=== PATIENT | male | born 1945 | race Caucasian/White ===

== ENCOUNTER 2018-04-13 14:37 | Inpatient (IN) | payer MEDICARE, BC ==
[~2018-04-13] VITALS: Ht 170.2 cm; Wt 78.5 kg
[2018-04-13] MEDS ORDERED: CIALIS5 MG PO (14:40)
[2018-04-13] MEDS ORDERED: ZOCOR20 M1 ORAL (14:40)
[2018-04-13] MEDS ORDERED: LISINOPRIL2.5 MG ORAL (14:40)
[2018-04-13 14:43] VITALS: BP 100/72
[2018-04-13] MEDS ORDERED: dilTIAZem HCl 25mg/5ml Inj IV ONE (14:45)
[2018-04-13] MEDS ORDERED: Isovue-370 150ml vial INJ PRN (14:45)
--- NOTE | 2018-04-13 15:01 | Emergency Room Report ---
History of Present Illness General Chief Complaint: Chest Pain Source: Patient Present Illness HPI Patient presents with weakness. He had syncopal episode this morning when he got up. He doesn't feel palpitations but has had intermittent nausea. He also denies chest pain. He was seen by his doctors at the hospital where he had undergone back surgery and had atrial flutter/fibrillation with a rapid ventricular rate. He's never had this in the past. The patient had abdominal surgery on Sunday. This was to repair a spinal fusion where a screw came loose. The surgery had no problems. He denies any swelling in his calfs or edema. The patient used to smoke. In 2007 he had a pneumothorax on the left-hand side. There is a nodule that had to be surgically removed. The nodule is benign. This pneumothorax was surgically corrected and he is left with scarring on the left-hand side. He's had joint replacement surgery. 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 No fevers, diarrhea, cough, dyspnea. He has difficulty initiating a stream and has to take Cialis. 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 Nursing Documentation: PMH: Agreed; PSxH: Agreed Nursing Documentation-PMH Hx Hypertension: Yes Review of Systems All Other Systems: negative except mentioned in HPI Physical Exam Vital Signs Date Time Temp Pulse Resp B/P (MAP) Pulse Ox O2 Delivery O2 Flow Rate FiO2 04/13/18 14:35 98.0 145 16 101/70 98 Room Air 98.1 Sp02 EP Interpretation: reviewed, normal General Appearance: well appearing, no apparent distress, GCS 15 Head: normocephalic, atraumatic Eyes: bilateral eye normal inspection, bilateral eye PERRL ENT: moist mucus membranes Neck: supple Respiratory: lungs clear, normal breath sounds Cardiovascular #1: regular rate, rhythm, no edema Cardiovascular #2: 2+ radial (R) Gastrointestinal: normal inspection, normal bowel sounds, non tender, no mass, non-distended, other - surgical wound appears clean Musculoskeletal: back normal - with minimal muscular tenderness, gait/station normal, normal range of motion, no calf tenderness, Heaven's Sign negative Neurologic: alert, oriented x3, grossly normal Psychiatric: mood/affect normal Skin: normal inspection, warm/dry Medical Decision Making Diagnostic Impression: Primary Impression: Atrial fibrillation with rapid ventricular response Additional Impressions: Atrial flutter Qualified Codes: I48.92 - Unspecified atrial flutter UTI (urinary tract infection) Qualified Codes: T83.511A - Infection and inflammatory reaction due to indwelling urethral catheter, initial encounter; N39.0 - Urinary tract infection , site not specified ER Course Patient presents post syncope with weakness and an arrhythmia. On his rhythm strips he has atrial flutter and fibrillation. Differential includes acute pulmonary embolus, acute myocardial infarction, acute coronary syndrome, hyperthyroidism, left right abnormalities amongst others. Evaluation will be with EKG, chest x-ray and labs. The patient will be given a dose of diltiazem. With the recent surgery that possibility of a pulmonary embolus is real and a CT angiogram has been ordered. Because of arrhythmia and history of syncope the patient needs to be admitted to the hospital. EKG with supraventricular tachycardia which could be atrial flutter versus atrial fibrillation with rapid ventricular response. Nonspecific ST-T wave changes without STEMI. Patient is given diltiazem and his rate is now regular at 87. Repeat EKG has been done. Repeat EKG was read us sinus rhythm however it actually is atrial flutter with variable block. There are no hyperacute changes. Labs otherwise unremarkable. Pyuria. Rocephin started. Dr. Leahy examined the patient here. CTA - discussed with radiologist. No large PE. (Atelectasis L base.) Patient rate stable. Admit SDU, Dr Leahy. Laboratory Tests Test 04/13/18 14:15 04/13/18 16:20 White Blood Count 10.5 K/UL (4.8-10.8) Red Blood Count 5.06 M/UL (4.70-6.10) Hemoglobin 14.9 G/DL (14.2-18.0) Hematocrit 43.7 % (42.0-52.0) Mean Corpuscular Volume 86 FL (80-99) Mean Corpuscular Hemoglobin 29.4 PG (27.0-31.0) Mean Corpuscular Hemoglobin Concent 34.0 G/DL (32.0-36.0) Red Cell Distribution Width 11.1 % (11.6-14.8) L Platelet Count 204 K/UL (150-450) Mean Platelet Volume 6.7 FL (6.5-10.1) Neutrophils (%) (Auto) 73.6 % (45.0-75.0) Lymphocytes (%) (Auto) 13.9 % (20.0-45.0) L Monocytes (%) (Auto) 11.6 % (1.0-10.0) H Eosinophils (%) (Auto) 0.6 % (0.0-3.0) Basophils (%) (Auto) 0.3 % (0.0-2.0) Prothrombin Time 10.0 SEC (9.30-11.50) Prothrombin Time INR 0.9 (0.9-1.1) PTT 36 SEC (23-33) H Sodium Level 138 MMOL/L (136-145) Potassium Level 3.5 MMOL/L (3.5-5.1) Chloride Level 102 MMOL/L (98-107) Carbon Dioxide Level 24 MMOL/L (21-32) Anion Gap 12 mmol/L (5-15) Blood Urea Nitrogen 18 mg/dL (7-18) Creatinine 1.3 MG/DL (0.55-1.30) Estimate Glomerular Filtration Rate mL/min (>60) Glucose Level 186 MG/DL (74-106) H Calcium Level 9.1 MG/DL (8.5-10.1) Total Bilirubin 1.7 MG/DL (0.2-1.0) H Direct Bilirubin 0.4 MG/DL (0.0-0.3) H Aspartate Amino Transferase (AST) 16 U/L (15-37) Alanine Aminotransferase (ALT) 22 U/L (12-78) Alkaline Phosphatase 64 U/L (46-116) Total Creatine Kinase 85 U/L (26-308) Troponin I 0.006 ng/mL (0.000-0.056) Pro-B-Type Natriuretic Peptide 255 pg/mL (0-125) H Total Protein 7.1 G/DL (6.4-8.2) Albumin 2.9 G/DL (3.4-5.0) L Globulin 4.2 g/dL Albumin/Globulin Ratio 0.7 (1.0-2.7) L Urine Color Alana Urine Appearance Slightly cloudy Urine pH 6 (4.5-8.0) Urine Specific [place] 1.015 (1.005-1.035) Urine Protein 2+ (NEGATIVE) H Urine Glucose (UA) Negative (NEGATIVE) Urine Ketones 1+ (NEGATIVE) H Urine Occult Blood 3+ (NEGATIVE) H Urine Nitrite Negative (NEGATIVE) Urine Bilirubin 1+ (NEGATIVE) H Urine Ictotest Negative Urine Urobilinogen 4 MG/DL (0.0-1.0) H Urine Leukocyte Esterase 2+ (NEGATIVE) H Urine RBC 5-10 /HPF (0 - 0) H Urine WBC 30-40 /HPF (0 - 0) H Urine Squamous Epithelial Cells Occasional /LPF Urine Bacteria Moderate /HPF (NONE) H Urine Hyaline Casts 0-2 /LPF (NONE) H Urine Granular Casts 0-2 /LPF (NONE) H Urine Mucus Moderate /LPF (NONE/OCC) H EKG Diagnostic Results Rate: tachycardiac Rhythm: other ST Segments: other - Atrial fibrillation with rapid ventricular response rate rate of 169. Rhythm Strip Diag. Results EP Interpretation: yes Rhythm: no PVC's, no ectopy, other - Atrial fibrillation rap Chest X-Ray Diagnostic Results Chest X-Ray Diagnostic Results : Chest X-Ray Ordered: Yes # of Views/Limited/Complete: 1 View Indication: Other EP Interpretation: Yes Interpretation: no effusion, no pneumothorax, other - scarring/atelectasis L base Impression: Other Electronically Signed by: Electronically signed by Darek Beard MD CT/MRI/US Diagnostic Results CT/MRI/US Diagnostic Results : Imaging Test Ordered: CTA chest Impression no large PE Last Vital Signs Date Time Temp Pulse Resp B/P (MAP) Pulse Ox O2 Delivery O2 Flow Rate FiO2 04/13/18 18:02 98.8 84 18 96/62 95 Room Air 98.8 Status: improved Disposition: ADMITTED INPATIENT Condition: Serious Darek Beard M.D. Apr 13, 2018 15:01
[2018-04-13 15:04] LABS: BASOPHILS % (AUTO) 0.3 % (0.0-2.0); EOSINOPHILS % (AUTO) 0.6 % (0.0-3.0); HEMATOCRIT 43.7 % (42.0-52.0); HEMOGLOBIN 14.9 G/DL (14.2-18.0); LYMPHOCYTES % (AUTO) 13.9 % (20.0-45.0); MEAN CORPUSCULAR VOLUME 86 FL (80-99); MONOCYTES % (AUTO) 11.6 % (1.0-10.0); NEUTROPHILS % (AUTO) 73.6 % (45.0-75.0); PLATELET COUNT 204 K/UL (150-450); RED BLOOD COUNT 5.06 M/UL (4.70-6.10); RED CELL DISTRIBUTION WIDTH 11.1 % (11.6-14.8); WHITE BLOOD COUNT 10.5 K/UL (4.8-10.8)
[2018-04-13 15:14] LABS: INR 0.9 (0.9-1.1)
[2018-04-13 15:20] LABS: ANION GAP 12 mmol/L (5-15); BLOOD UREA NITROGEN 18 mg/dL (7-18); CALCIUM 9.1 MG/DL (8.5-10.1); CARBON DIOXIDE 24 MMOL/L (21-32); CHLORIDE 102 MMOL/L (98-107); CREATININE 1.3 MG/DL (0.55-1.30); POTASSIUM 3.5 MMOL/L (3.5-5.1); SODIUM 138 MMOL/L (136-145)
[2018-04-13 15:31] LABS: ALANINE AMINOTRANSFERASE 22 U/L (12-78); ALBUMIN 2.9 G/DL (3.4-5.0); ALBUMIN/GLOBULIN RATIO 0.7 (1.0-2.7); ALKALINE PHOSPHATASE 64 U/L (46-116); ASPARTATE AMINO TRANSFERASE 16 U/L (15-37); BILIRUBIN,TOTAL 1.7 MG/DL (0.2-1.0); CREATINE KINASE 85 U/L (26-308)
[2018-04-13] MEDS ORDERED: CIALIS20 MG ORAL (15:48)
[2018-04-13] MEDS ORDERED: TAMSULOSIN HCL0.4 MG ORAL ×2 (15:48→23:11)
[2018-04-13] MEDS ORDERED: OXYCODONE-ACET1 EAC3 ORAL (15:48)
[2018-04-13] MEDS ORDERED: SIMVASTATIN20 MG ORAL (15:48)
[2018-04-13] MEDS ORDERED: PRINIVIL10 MG ORAL (15:48)
[2018-04-13] MEDS ORDERED: DIAZEPAM5 MG ORAL (15:48)
[2018-04-13 15:50] LABS: BILIRUBIN,DIRECT 0.4 MG/DL (0.0-0.3)
[2018-04-13 16:38] LABS: APPEARANCE,URINE SLIGHTLY CLOUDY; BILIRUBIN, URINE 1+ (NEGATIVE); GLUCOSE, URINE (UA) NEGATIVE (NEGATIVE); KETONES,URINE 1+ (NEGATIVE); LEUKOCYTE ESTERASE ,URINE 2+ (NEGATIVE); NITRITE,URINE NEGATIVE (NEGATIVE); PH,URINE 6 (4.5-8.0); PROTEIN,URINE 2+ (NEGATIVE); UROBILINOGEN,URINE 4 MG/DL (0.0-1.0)
[2018-04-13 16:39] LABS: COLOR,URINE AMBER
[2018-04-13] MEDS ORDERED: cefTRIAXone 1 GM in D5W 55 ML IVPB ONE (17:00)
--- NOTE | 2018-04-13 17:15 | Diagnostic Imaging Report ---
EXAM: XR Chest, 1 View CLINICAL HISTORY: WEAK TECHNIQUE: Frontal view of the chest. COMPARISON: CT of the chest dated 04/13/18 FINDINGS: Lungs: Subtle scarring versus atelectasis at the periphery of the left lower lung. The lungs are otherwise clear without focal consolidation. Pleural space: Mild thickening of the left lateral pleura and mild blunting of the left costophrenic angle. No pneumothorax. Heart: Unremarkable. No cardiomegaly. Mediastinum: Unremarkable. Bones/joints: Partial visualization of lower thoracic and upper lumbar spine fixation hardware. Bilateral shoulder replacements are partially visualized. Tubes, lines and devices: EKG leads overlie the thorax. IMPRESSION: 1. Subtle scarring versus atelectasis at the periphery of the left lower lung. 2. Blunting of left costophrenic angle likely related to mild pleural thickening, as no effusion is seen on the comparison CT on the same date.
--- NOTE | 2018-04-13 17:28 | Diagnostic Imaging Report ---
EXAM: CT Angiography Chest With Intravenous Contrast CLINICAL HISTORY: PE TECHNIQUE: Axial computed tomographic angiography images of the chest with intravenous contrast using pulmonary embolism protocol. CTDI is 109 mGy and DLP is 7/8/71 mGy-cm. One or more of the following dose reduction techniques were used: automated exposure control, adjustment of the mA and/or kV according to patient size, use of iterative reconstruction technique. MIP reconstructed images were created and reviewed. Coronal and sagittal reformatted images were created and reviewed. COMPARISON: No relevant prior studies available. FINDINGS: Pulmonary arteries: No evidence of pulmonary embolism. Aorta: No thoracic aortic aneurysm. Lungs: Unremarkable. No mass. No consolidation. Pleural space: Mild pleural thickening at the periphery of the left lower lobe with a 2.0 x 1.0 cm subpleural nodular consolidation (series 7 image 61). No significant effusion. No pneumothorax. Heart: Coronary artery calcifications. No significant pericardial effusion. No evidence of RV dysfunction. Mediastinum: Small hiatal hernia. Bones/joints: Partial visualization of fixation hardware in the lower thoracic and upper lumbar spine. No acute fracture. No dislocation. Soft tissues: Unremarkable. Lymph nodes: Unremarkable. No enlarged lymph nodes. Kidneys and ureters: 2.8 cm simple-appearing cyst in the right mid kidney is partially visualized. Stomach and bowel: Partial visualization of diverticulosis in the proximal descending colon. IMPRESSION: 1. No evidence of pulmonary embolism. 2. Mild pleural thickening at the periphery of the left lower lobe with a 2.0 x 1.0 cm subpleural nodular consolidation (series 7 image 61). This is nonspecific and likely represents rounded atelectasis, scarring, nodular infiltrate, or less likely a mass. Recommend follow-up CT of the thorax in 3-6 months to evaluate for interval change. 3. Coronary artery calcifications. 4. Small hiatal hernia. 5. 2.8 cm simple-appearing cyst in the right mid kidney is partially visualized. 6. Partial visualization of diverticulosis in the proximal descending colon. Critical Value Communications 04/13/18 17:20 Call From Sg Beard MD on 04/13 17:18 (-07:00)
[2018-04-13 18:02] VITALS: BP 96/62
[2018-04-13] MEDS ORDERED: Zolpidem 5mg tab ORAL PRN (19:00)
[2018-04-13] MEDS ORDERED: Milk of Magnesia 30ml Ud ORAL PRN (19:00)
[2018-04-13 20:00] VITALS: BP 129/77
[2018-04-13] MEDS: Heparin 5000 units/ml inj SUBQ SCH (20:25)
[2018-04-13] MEDS ORDERED: oxyCODONE HCL/Acetaminophen 5/325mg ORAL PRN ×2 (23:30)
[2018-04-14] VITALS: BP 113/67
[2018-04-14 04:00] VITALS: BP 140/80
[2018-04-14 05:03] LABS: BASOPHILS % (AUTO) 0.7 % (0.0-2.0); EOSINOPHILS % (AUTO) 2.9 % (0.0-3.0); HEMATOCRIT 34.3 % (42.0-52.0); HEMOGLOBIN 11.8 G/DL (14.2-18.0); LYMPHOCYTES % (AUTO) 27.1 % (20.0-45.0); MEAN CORPUSCULAR VOLUME 87 FL (80-99); MONOCYTES % (AUTO) 12.8 % (1.0-10.0); NEUTROPHILS % (AUTO) 56.6 % (45.0-75.0); PLATELET COUNT 195 K/UL (150-450); RED BLOOD COUNT 3.94 M/UL (4.70-6.10); RED CELL DISTRIBUTION WIDTH 11.3 % (11.6-14.8); WHITE BLOOD COUNT 6.9 K/UL (4.8-10.8)
[2018-04-14 05:16] LABS: ANION GAP 8 mmol/L (5-15); BLOOD UREA NITROGEN 17 mg/dL (7-18); CALCIUM 8.6 MG/DL (8.5-10.1); CARBON DIOXIDE 27 MMOL/L (21-32); CHLORIDE 106 MMOL/L (98-107); POTASSIUM 3.4 MMOL/L (3.5-5.1); SODIUM 141 MMOL/L (136-145)
[2018-04-14 08:00] VITALS: BP 142/85
[2018-04-14] MEDS ORDERED: CIALIS 5 MG ORAL SCH (09:00)
[2018-04-14] MEDS ORDERED: Lisinopril 10mg tab ORAL SCH (09:00)
[2018-04-14] MEDS: Heparin 5000 units/ml inj SUBQ SCH (09:25)
[2018-04-14] MEDS ORDERED: Fleet's Enema 133ml RECTAL SCH (10:30)
[2018-04-14 12:00] VITALS: BP 145/88
--- NOTE | 2018-04-14 14:10 | Cardiology Progress Note ---
Assessment/Plan Assessment/Plan The patient is seen and examined, full consult note will be dictated. Objective Last 24 Hour Vital Signs Date Time Temp Pulse Resp B/P (MAP) Pulse Ox O2 Delivery O2 Flow Rate FiO2 04/14/18 12:00 98.7 85 20 145/88 (107) 85 98.7 04/14/18 12:00 Room Air Room Air 04/14/18 12:00 93 04/14/18 09:24 142/85 04/14/18 08:00 Room Air Room Air 04/14/18 08:00 98.6 91 18 142/85 (104) 95 98.6 04/14/18 08:00 88 04/14/18 04:00 89 04/14/18 04:00 Room Air Room Air 04/14/18 04:00 98.5 82 20 140/80 (100) 95 98.5 04/14/18 00:00 Room Air Room Air 04/14/18 00:00 85 04/14/18 00:00 98.2 90 20 113/67 (82) 95 98.2 04/13/18 20:00 85 04/13/18 20:00 98.6 87 20 129/77 (94) 91 98.6 04/13/18 20:00 Room Air Room Air 04/13/18 18:43 Room Air Room Air 04/13/18 18:24 88 04/13/18 18:02 98.8 84 18 96/62 95 Room Air 98.8 04/13/18 18:00 98.0 135 18 100/72 98 Room Air 98.1 04/13/18 14:51 141 100/72 04/13/18 14:43 135 18 Room Air 04/13/18 14:43 135 18 100/72 98 Room Air 04/13/18 14:35 98.0 145 16 101/70 98 Room Air 98.1 Intake and Output 04/13/18 04/14/18 19:00 07:00 Intake Total 0 ml 1020 ml Output Total 700 ml Balance 0 ml 320 ml Intake Oral 0 ml 120 ml IV Total 900 ml Output Urine Total 700 ml Laboratory Tests Test 04/13/18 14:15 04/13/18 16:20 04/14/18 03:30 White Blood Count 10.5 K/UL (4.8-10.8) 6.9 K/UL (4.8-10.8) Red Blood Count 5.06 M/UL (4.70-6.10) 3.94 M/UL (4.70-6.10) L Hemoglobin 14.9 G/DL (14.2-18.0) 11.8 G/DL (14.2-18.0) L Hematocrit 43.7 % (42.0-52.0) 34.3 % (42.0-52.0) L Mean Corpuscular Volume 86 FL (80-99) 87 FL (80-99) Mean Corpuscular Hemoglobin 29.4 PG (27.0-31.0) 29.9 PG (27.0-31.0) Mean Corpuscular Hemoglobin Concent 34.0 G/DL (32.0-36.0) 34.3 G/DL (32.0-36.0) Red Cell Distribution Width 11.1 % (11.6-14.8) L 11.3 % (11.6-14.8) L Platelet Count 204 K/UL (150-450) 195 K/UL (150-450) Mean Platelet Volume 6.7 FL (6.5-10.1) 6.2 FL (6.5-10.1) L Neutrophils (%) (Auto) 73.6 % (45.0-75.0) 56.6 % (45.0-75.0) Lymphocytes (%) (Auto) 13.9 % (20.0-45.0) L 27.1 % (20.0-45.0) Monocytes (%) (Auto) 11.6 % (1.0-10.0) H 12.8 % (1.0-10.0) H Eosinophils (%) (Auto) 0.6 % (0.0-3.0) 2.9 % (0.0-3.0) Basophils (%) (Auto) 0.3 % (0.0-2.0) 0.7 % (0.0-2.0) Prothrombin Time 10.0 SEC (9.30-11.50) Prothromb Time International Ratio 0.9 (0.9-1.1) Activated Partial Thromboplast Time 36 SEC (23-33) H Sodium Level 138 MMOL/L (136-145) 141 MMOL/L (136-145) Potassium Level 3.5 MMOL/L (3.5-5.1) 3.4 MMOL/L (3.5-5.1) L Chloride Level 102 MMOL/L (98-107) 106 MMOL/L (98-107) Carbon Dioxide Level 24 MMOL/L (21-32) 27 MMOL/L (21-32) Anion Gap 12 mmol/L (5-15) 8 mmol/L (5-15) Blood Urea Nitrogen 18 mg/dL (7-18) 17 mg/dL (7-18) Creatinine 1.3 MG/DL (0.55-1.30) 1.0 MG/DL (0.55-1.30) Estimat Glomerular Filtration Rate mL/min (>60) mL/min (>60) Glucose Level 186 MG/DL (74-106) H 108 MG/DL (74-106) H Calcium Level 9.1 MG/DL (8.5-10.1) 8.6 MG/DL (8.5-10.1) Total Bilirubin 1.7 MG/DL (0.2-1.0) H Direct Bilirubin 0.4 MG/DL (0.0-0.3) H Aspartate Amino Transf (AST/SGOT) 16 U/L (15-37) Alanine Aminotransferase (ALT/SGPT) 22 U/L (12-78) Alkaline Phosphatase 64 U/L (46-116) Total Creatine Kinase 85 U/L (26-308) Troponin I 0.006 ng/mL (0.000-0.056) 0.006 ng/mL (0.000-0.056) Pro-B-Type Natriuretic Peptide 255 pg/mL (0-125) H 162 pg/mL (0-125) H Total Protein 7.1 G/DL (6.4-8.2) Albumin 2.9 G/DL (3.4-5.0) L Globulin 4.2 g/dL Albumin/Globulin Ratio 0.7 (1.0-2.7) L Urine Color Alana Urine Appearance Slightly cloudy Urine pH 6 (4.5-8.0) Urine Specific [place] 1.015 (1.005-1.035) Urine Protein 2+ (NEGATIVE) H Urine Glucose (UA) Negative (NEGATIVE) Urine Ketones 1+ (NEGATIVE) H Urine Occult Blood 3+ (NEGATIVE) H Urine Nitrite Negative (NEGATIVE) Urine Bilirubin 1+ (NEGATIVE) H Urine Ictotest Negative Urine Urobilinogen 4 MG/DL (0.0-1.0) H Urine Leukocyte Esterase 2+ (NEGATIVE) H Urine RBC 5-10 /HPF (0 - 0) H Urine WBC 30-40 /HPF (0 - 0) H Urine Squamous Epithelial Cells Occasional /LPF Urine Bacteria Moderate /HPF (NONE) H Urine Hyaline Casts 0-2 /LPF (NONE) H Urine Granular Casts 0-2 /LPF (NONE) H Urine Mucus Moderate /LPF (NONE/OCC) H Microbiology Date/Time Source Procedure Growth Status 04/13/18 16:20 Urine,Clean Catch Urine Culture - Preliminary NO GROWTH Resulted Marcos Oneill MD Apr 14, 2018 14:10
[2018-04-14] MEDS ORDERED: Metoprolol Succinate XL 25mg tab ORAL SCH (14:30)
[2018-04-14 16:00] VITALS: BP 148/84
[2018-04-14] MEDS ORDERED: Tubing IV Secondary IV ONE (17:44)
--- NOTE | 2018-04-14 18:00 | History and Physical Report ---
DATE OF ADMISSION: 04/13/2018 REASON FOR ADMISSION: Rapid atrial fibrillation. HISTORY: This is a 72-year-old male, who was postop day 3 spine surgery. He was noted to have some orthostasis and later on, acute tachycardia with atrial fibrillation. The patient presented to the emergency room and had a negative CT pulmonary angiogram. Care discussed with spine and care discussed with the patient's [facility] hosp[facility]. No prior history of cardiac disease. The patient is comfortable at present. The patient apparently had a lung nodule, which was benign, previously removed. PAST MEDICAL HISTORY: Notable for hypertension, benign prostatic hyperplasia, and erectile dysfunction. PAST SURGICAL HISTORY: Recent spine surgery as noted. MEDICATIONS: Reviewed. ALLERGIES: Reviewed. SOCIAL HISTORY: Nonsmoker and nondrinker at present. The patient is engaged. REVIEW OF SYSTEMS: Otherwise negative. PHYSICAL EXAMINATION: GENERAL: A well-developed male, comfortable at present. VITAL SIGNS: Stable. Blood pressure 142/85, 72, respirations 18, and sats 95% on room air. 97.4 HEENT: Negative NECK: Supple. LUNGS: Clear. Symmetric. No rhonchi or wheezes. CARDIAC: S1 and S2. Currently, regular rate and rhythm without murmurs, rubs, or gallops. ABDOMEN: Soft, nontender, and nondistended. EXTREMITIES: No cyanosis, clubbing, or edema. NEUROLOGICALLY: The patient is grossly nonfocal. LABORATORY DATA: Reviewed. Troponins are negative. Liver enzymes minimally elevated. BNP minimally elevated. Albumin 2.9. CT pulmonary angiogram as noted, no PE. There is rounded atelectasis in the left lower lung. IMPRESSION: Atrial fibrillation with a rapid ventricular response, transient of unclear significance. Negative troponins. CT with noted atelectasis in the left lower lobe, hypertension, BPH, kidney cyst, and coronary artery calcifications. RECOMMENDATIONS: Await echocardiogram. Await Cardiology evaluation. For now, resume medication, pain control, and PT, and if stable and cleared by Cardiology, we will discharge the patient home with outpatient followup. Saturnino Leahy M.D. DR: JOE JOB#: [id number] CC: RAQUEL
[2018-04-14] MEDS ORDERED: Tamsulosin 0.4mg cap ORAL SCH (21:00)
--- NOTE | 2018-04-15 | Consultation ---
DATE OF CONSULTATION: 04/14/2018 CARDIOLOGY CONSULTATION CONSULTING PHYSICIAN: Marcos Oneill M.D. REFERRING PHYSICIAN: Saturnino Leahy M.D. REASON FOR CONSULTATION: Management of atrial flutter with rapid ventricular response. HISTORY OF PRESENT ILLNESS: This is a very pleasant 70-year-old gentleman, who was brought in after he sustained a syncopal event two days after he had spinal surgery in the surgical center. He believes that he was dehydrated and was trying to get up and walk. He did have some nausea shortly with this event. The patient was brought in to [facility] where his blood pressure was 101/70 and heart rate of 146. A 12-lead electrocardiogram reveals atrial flutter with rapid ventricular response. The patient was given diltiazem, which slowed his atrial flutter to 87 beats. The patient was admitted to telemetry under the care of Dr. Leahy. Cardiology consultation was made at the request of Dr. Leahy to address and evaluated atrial flutter with rapid ventricular response. This is the first episode of cardiac arrhythmias. The patient's general practitioner is also a technology recruiter, who has never mentioned cardiac arrhythmia in his past history. PAST MEDICAL HISTORY: The patient has history of hypertension, but denies any coronary artery disease, congestive heart failure, diabetes mellitus, or any prior history of stroke. Benign prostatic hyperplasia as well as history of dyslipidemia. PAST SURGICAL HISTORY: Spinal surgery. He also had joint surgeries. SOCIAL HISTORY: He has [id number] smoking history. Quit smoking a long time ago. Also, history of prior THC use. Denies any alcohol use. FAMILY HISTORY: No premature coronary artery disease in the first-degree relatives. ALLERGIES: No known drug allergies. REVIEW OF SYSTEMS: HEENT: Denies any headache, diplopia, or blurred vision. CONSTITUTIONAL: Denies any fever or chills. Had some fatigue and generalized weakness at the time of arrival to the hospital. CVS: Denies any chest pain shortness of breath, PND, orthopnea, leg swelling, or palpitations. PULMONARY: Denies any cough, hemoptysis, or wheezing. GASTROINTESTINAL: He had some nausea. He attributes to narcotics that he has taken for the surgery. Denies any diarrhea, constipation, and gastrointestinal bleed. GENITOURINARY: Denies any hematuria, dysuria, or incontinence. NEUROLOGY: Denies any motor dysfunction, sensory deficit, or altered speech. LIST OF MEDICATIONS: Lisinopril 10 mg p.o. daily, oxycodone acetaminophen 5/325 mg one q.4 h. p.r.n. pain, simvastatin 20 mg p.o. at bedtime, Cialis 5 mg p.o. daily, and tamsulosin 0.8 mg p.o. at bedtime. PHYSICAL EXAMINATION: VITAL SIGNS: Blood pressure was 101/70, respirations 16, pulse of 146, temperature 98.2 degrees Fahrenheit, and O2 saturation 98% on room air. GENERAL: The patient is a very unfortunate 72-year-old gentleman seen in Cardiology consultation at the request of Dr. Leahy. ASSESSMENT AND PLAN: 1. Atrial fibrillation with rapid ventricular response. His [id number] score is considered to be 2 based on his age as well as history of hypertension. Technically, the patient requires to be on anticoagulant therapy, which I would recommend 3 weeks after his surgery when the healing is complete and may benefit from agents to keep him in sinus rhythm. The patient will be continued in the outpatient setting, but his technology recruiter will review his records from this hospital. At this time, I would continue with only beta-sadiq to keep his heart rate in 60s. I would use metoprolol, long-acting XL. 2. Syncope could be due to tachyarrhythmias questionable whether the patient had any bradyarrhythmias. He would benefit from an outpatient event monitor for about a week. I will leave it up to his primary technology recruiter. It appears that syncope is likely due to hypovolemia or neurally mediated due to a great deal of pain following surgery. 3. Status post spinal surgery. 4. Hypokalemia. Potassium supplementation to be given. I would like to thank, Dr. Leahy, for allowing me to participate in the care of this patient. Marcos Oneill M.D. DR: GINA JOB#: [id number] CC:
--- NOTE | 2018-04-15 13:30 | Discharge Summary ---
Discharge Summary Discharge Summary _ DATE OF ADMISSION: 04/13/2018 DATE OF DISCHARGE: 04/14/2018 REASON FOR ADMISSION: 72 years old male with past medical history of hypertension , postoperative day 3 after spinal surgery , presented to emergency department after syncopal episode earlier that morning. Patient did not feel any palpitations but had intermittent nausea. Patient denied chest pain and shortness of breath. 12-lead EKG revealed atrial flutter with rapid ventricular response. Troponin was negative. Blood pressure was stable. Heart rate was 146. Patient was given Cardizem which slowed his heart rate to 87. CTA of the chest revealed no evidence of pulmonary emboli. CT scan revealed low mild pleural thickening at the periphery of the left lower lobe with pleural nodular consolidation. Nonspecific likely representing rounded atelectasis, scarring, nodular infiltrate less likely mass. Patient admitted with diagnoses of syncopal episode, atrial fibrillation with rapid ventricular response, status post recent spine surgery ,hypertension CONSULTANTS: supervisor/port director Dr. Oneill HOSPITAL COURSE: Patient admitted to telemetry floor. Patient started on IV hydration Heart rate was controlled with beta sadiq. Drama Director closely followed. According to supervisor/port director, patient had [id number] VAS score 2 due to his age and history of hypertension. Patient will require anticoagulation therapy. At this time due to recent surgery, supervisor/port director recommended to start anticoagulation in three weeks after surgery when healing completed. Drama Director recommended at this time continue only with beta sadiq to keep heart rate in 60s. He recommended use metoprolol XL. According to supervisor/port director , syncope was likely secondary to tachyarrhythmia and possible dehydration due to hypovolemia or neurally mediated. . Blood pressure was managed with calcium channel sadiq and beta sadiq. DVT prophylaxis provided Statin resumed. Echocardiogram revealed preserved ejection fraction of 55-60% and right ventricular systolic pressure of 37 consistent with mild pulmonary hypertension. Potassium was replaced. Pain management addressed. Bowel regimen instituted. Supportive care provided. Patient clinically improved and was stable for discharge. Due to rapid and unexpected improvement in patient condition, patient was discharged in one day. Patient was recommended to follow-up with CT chest in 3 to 6 months FINAL DIAGNOSES: Atrial fibrillation with rapid ventricular response Syncope probably secondary to tachyarrhythmia Status post recent spinal surgery Hypertension Hypokalemia DISCHARGE MEDICATIONS: See Medication Reconciliation list. DISCHARGE INSTRUCTIONS: Patient was discharged home ,follow-up with the primary care provider in one week. I have been assigned to dictate discharge summary for this account. I was not involved in the patient's management. Sabrina Winter NP Apr 15, 2018 13:30
--- NOTE | 2018-04-15 20:41 | Cardiology Report ---
APPROVED REPORT EXAM: Two-dimensional and M-mode echocardiogram with Doppler and color Doppler. INDICATION Atrial Fibrillation M-Mode DIMENSIONS IVSd1.1 (0.7-1.1cm)Left Atrium (MM)3.5 (1.6-4.0cm) LVDd4.8 (3.5-5.6cm)Aortic Root2.9 (2.0-3.7cm) PWd1.0 (0.7-1.1cm)Aortic Cusp Exc.2.0 (1.5-2.0cm) LVDs2.8 (2.5-4.0cm) PWs1.1 cm Technically difficult study due to poor acoustical windows. Normal left ventricular chamber size, systolic function and wall motion. Left ventricular ejection fraction estimated to be 55-60%. No evidence of left ventricular hypertrophy. No evidence of pericardial or pleural effusion. All other cardiac chamber sizes are within normal limits. Focal aortic valve sclerosis with adequate cusp excursion. Thickened mitral valve leaflets with normal excursion. Mild mitral annulus and aortic root calcification. Pulmonic valve not well visualized. Normal tricuspid valve structure. IVC is normal in size and collapsible with respiration. A color flow and spectral Doppler study was performed and revealed: Mild aortic regurgitation. Trace mitral regurgitation. Mitral diastolic velocities suggest reduced left ventricular relaxation c/w diastolic dysfunction grade 1. Mild tricuspid regurgitation. Tricuspid systolic velocities suggests peak right ventricular systolic pressure of 37 mmHg Consistent with mild pulmonary hypertension.
== END 2018-04-14 17:45 | disposition home or self-care (01) | DRG 310 ==
LOC: EDBD 14:37 → EMR 15:33 → EDBEDREQ 16:28 → 2W 16:33
DX: I48.91 Unspecified atrial fibrillation (principal); R55 Syncope and collapse; R00.0 Tachycardia, unspecified; I10 Essential (primary) hypertension; E87.6 Hypokalemia; Z98.890 Other specified postprocedural states; N40.0 Benign prostatic hyperplasia without lower urinary tract symptoms; E78.5 Hyperlipidemia, unspecified
CPT/HCPCS: 36415; 71045; 71275; 80048; 80053; 81003; 82248; 82550; 83880; 84484; 85025; 85610; 85730; 86850; 86900; 86901; 87081; 87086; 93005; 93306; J8499